=== PATIENT | female | born 1960 | race Two or more races ===

== ENCOUNTER 2023-02-16 10:00 | Inpatient (IN) | payer OTHER ==
[2023-02-16] MEDS ORDERED: PROTONIX20 MG PO (12:12)
[2023-02-21] MEDS ORDERED: PANTOPRAZOLE SO40 MG (11:32)
[2023-02-21] MEDS ORDERED: FLUOCINOLONE AC20 ML (11:32)
[2023-02-22 07:54] LABS: HEMATOCRIT 31.6 % (36.0-45.00); HEMOGLOBIN 10.5 g/dL (12.0-15.00); MEAN CELL VOLUME 83.1 fL (80.00-100.00); MEAN CORPUSCULAR HEMOGLOBIN 27.5 pg (27.00-32.0); MEAN CORPUSCULAR HGB CONC 33.1 g/dl (32.0-36.0); PLATELET COUNT 254 K/uL (150-450); RED BLOOD COUNT 3.81 M/uL (4.00-6.00); RED CELL DISTRIBUTION WIDTH 12.6 % (11.5-14.5)
[2023-02-22 08:31] LABS: ALBUMIN 2.8 gm/dL (3.4-5.0); CALCIUM 8.3 mg/dL (8.5-10.1); CREATININE SERUM 0.54 mg/dL (0.55-1.02); GFR 114.39; MAGNESIUM 1.6 mg/dL (1.8-2.4); PHOSPHOROUS 3.5 mg/dL (2.5-4.9); POTASSIUM 3.65 mEq/L (3.5-5.1)
[2023-02-23 06:44] LABS: HEMATOCRIT 31.7 % (36.0-45.00); HEMOGLOBIN 10.7 g/dL (12.0-15.00); MEAN CORPUSCULAR HEMOGLOBIN 27.6 pg (27.00-32.0); MEAN CORPUSCULAR HGB CONC 33.6 g/dl (32.0-36.0); PLATELET COUNT 248 K/uL (150-450); RED BLOOD COUNT 3.87 M/uL (4.00-6.00); RED CELL DISTRIBUTION WIDTH 13.3 % (11.5-14.5)
[2023-02-23 07:12] LABS: CALCIUM 8.2 mg/dL (8.5-10.1); CREATININE SERUM 0.54 mg/dL (0.55-1.02); GFR 114.39; MAGNESIUM 2.3 mg/dL (1.8-2.4); PHOSPHOROUS 2.7 mg/dL (2.5-4.9); POTASSIUM 3.58 mEq/L (3.5-5.1)
== END 2023-02-23 15:04 | disposition home or self-care (01) | DRG 330 ==
LOC: SURH 10:00 → O/R 02-21 05:30 → SURH 02-21 18:32
PROVIDERS: Internal Medicine Geriatric Medicine; ADMIT Colon & Rectal Surgery; ATTEND Colon & Rectal Surgery
PROC: 0DBP4ZZ Excision of Rectum, Percutaneous Endoscopic Approach (ICD-10-PCS; 2023-02-21)
PROC: 3E0F7GC Introduction of Other Therapeutic Substance into Respiratory Tract, Via Natural or Artificial Opening (ICD-10-PCS; 2023-02-21)
PROC: 0DTN4ZZ Resection of Sigmoid Colon, Percutaneous Endoscopic Approach (ICD-10-PCS; principal; 2023-02-21 07:00)
DX: K59.09 Other constipation (principal); K57.32 Diverticulitis of large intestine without perforation or abscess without bleeding

== ENCOUNTER 2024-11-16 12:14 | Inpatient (IN) | payer OTHER ==
[~2024-11-16] VITALS: Ht 154.9 cm; Wt 585.1 kg
[~2024-11-16 12:14] MED LIST: FLUOCINOLONE AC20 ML; PANTOPRAZOLE SO40 MG; PROTONIX20 MG PO
--- NOTE | 2024-11-16 12:31 | NUR ---
SE RECIBE PTE ALERTA Y ORIENTADA LA CUAL REFIERE VENIR POR DOLOR ABDOMINAL DIFUSO DESDE HACE VARIOS MATHUR, NAUSEAS, CONSTIPACION Y FIEBRE. PTE DE DR. STAFFORD. SE MIDEN S/V A PTE Y SE UBICA.
[2024-11-16] MEDS ORDERED: MORPHINE SULFATE 2 MG/ML CARTRIDGE IV ONE (14:45)
[2024-11-16 15:52] LABS: BASO % 0.2 % (0.1-1.2); EOS # 0.00 (0.04-0.54); EOS % 0.0 % (0.7-7.0); LYMPH # 0.85 (1.18-3.74); LYMPH % 5.0 % (19.3-53.1); MEAN PLATELET VOLUME 9.50 fl (9.4-12.4); MONO # 1.22 (0.24-0.82); MONO % 7.1 % (4.7-12.5); NEUT # 14.98 (1.56-6.13); NEUT % 87.4 % (34.0-71.1); RED CELL DISTRIBUTION WIDTH 13.8 % (11.6-14.4)
--- NOTE | 2024-11-16 15:55 | NUR ---
PTE. EVALUADO POR DR. JEAN, PRESENTANDO DOLOR ABDOMINAL. SE COLECTAN MUESTRAS DE PRASANNA BAJO MEDIDAS ASEPTICAS Y SE ADMINISTRA MEDICACION ADIEL ORDEN MEDICA. CLIENTE ES ORIENTADO SOBRE PROCEDIMIENTOS REALIZADOS Y PROCESO DE RE-EVALUACION MEDICA. PENDIENTE CT ABD-PELVICO. PTE. ALERTA Y ORIENTADO LORA LA INTERVENCION POR PERSONAL RN.
[2024-11-16 16:17] LABS: INR 1.17
[2024-11-16 16:25] LABS: ALT/SGPT 20.0 U/L (12-78); AST/SGOT 37.0 U/L (15-37); BILIRUBIN TOTAL 2.05 mg/dL (0.3-1.2); BILIRUBIN,CONJUGATED 0.41 mg/dL (0.0-0.2); BUN CREA RATIO 19.0 (7.0-25.0); CREATININE SERUM 0.59 mg/dL (0.55-1.02); GFR 102.62; GLOBULINA 3.9 G/DL (2.4-3.5); GLUCOSE FASTING 108.0 mg/dL (65-100); OSMOLALITY SERUM 277.0 MOSM/KG (275-295)
[2024-11-16] MEDS ORDERED: LIDOCAINE HCL VISCOUS 20MG/ML BLIST 15ML MM ONE (17:42)
--- NOTE | 2024-11-16 18:24 | NUR ---
SE INSERTA TUBO NASOGASTRICO #16 EN FOSA NASAL IZQUIERDA Y SE CONECTA A SUCCION INTERMITENTE. CLIENTE ES ORIENTADO SOBRE PROCEDIMIENTO REALIZADO Y SEGUIMIENTO DE CONDICION EN MICKEY DE EMERGENCIAS. SE MANTIENE EN OBSERVACION POR CAMBIOS SIGNIFICATIVOS DENTRO DE DELEON CONDICION.
[2024-11-16] MEDS ORDERED: MORPHINE SULFATE 4 MG/ML VIAL IV STA (20:11)
[2024-11-16] MEDS ORDERED: PIPERACILLIN/TAZOBACTAM SODIUM 3.375 GM VIAL IV STA (20:20)
[2024-11-16] MEDS ORDERED: PIPERACILLIN/TAZOBACTAM SODIUM 3.375 GM VIAL IV ONE (20:31)
[2024-11-16] MEDS ORDERED: PANTOPRAZOLE SODIUM 40 MG in 0.9 % SODIUM CHLORIDE 8 ML IV PUSH SCH (20:45)
[2024-11-16] MEDS ORDERED: MORPHINE SULFATE 2 MG/ML CARTRIDGE IV PRN (20:45)
[2024-11-16] MEDS ORDERED: ONDANSETRON HCL 4 MG in 0.9 % SODIUM CHLORIDE 50 ML IV PRN (20:45)
[2024-11-16] MEDS ORDERED: PIPERACILLIN/TAZOBACTAM SODIUM 4.5 GM in 0.9 % SODIUM CHLORIDE 100 ML IV SCH (20:45)
[2024-11-16] MEDS ORDERED: POTASSIUM CHLORIDE 20MEQ/100ML H2O PB IV ONE ×2 (20:45→21:28)
[2024-11-16] MEDS ORDERED: 0.9 % SODIUM CHLORIDE 1,000 ML IV SCH (20:45)
[2024-11-16 21:56] VITALS: BP 96/62; O2SAT 100
[2024-11-16 23:36] VITALS: BP 109/68; O2SAT 96
[2024-11-17 05:51] LABS: ALT/SGPT 16.0 U/L (12-78); AST/SGOT 32.0 U/L (15-37); BILIRUBIN TOTAL 1.7 mg/dL (0.3-1.2); BUN CREA RATIO 22.0 (7.0-25.0); CREATININE SERUM 0.5 mg/dL (0.55-1.02); GFR 124.21; GLOBULINA 3.1 G/DL (2.4-3.5); GLUCOSE FASTING 111.0 mg/dL (65-100); OSMOLALITY SERUM 278.0 MOSM/KG (275-295)
[2024-11-17 08:00] VITALS: BP 108/66
[2024-11-17] MEDS ORDERED: ENOXAPARIN SODIUM 40 MG/0.4 ML SYRINGE SUBCUTANEO SCH (09:45)
[2024-11-17 15:54] VITALS: BP 113/72; O2SAT 100
[2024-11-18 00:56] VITALS: BP 103/64; O2SAT 96
[2024-11-18 07:48] VITALS: BP 101/62; O2SAT 95
[2024-11-18 08:51] LABS: BASO % 0.2 % (0.1-1.2); EOS # 0.00 (0.04-0.54); EOS % 0.0 % (0.7-7.0); LYMPH # 0.77 (1.18-3.74); LYMPH % 5.4 % (19.3-53.1); MEAN PLATELET VOLUME 10.30 fl (9.4-12.4); MONO # 1.57 (0.24-0.82); MONO % 11.1 % (4.7-12.5); NEUT # 11.73 (1.56-6.13); NEUT % 82.7 % (34.0-71.1); RED CELL DISTRIBUTION WIDTH 14.2 % (11.6-14.4)
[2024-11-18 16:36] VITALS: BP 105/67; O2SAT 96
[2024-11-19 00:17] VITALS: BP 106/62; O2SAT 97
[2024-11-19 06:00] LABS: BASO % 0.3 % (0.1-1.2); EOS # 0.00 (0.04-0.54); EOS % 0.0 % (0.7-7.0); LYMPH # 0.74 (1.18-3.74); LYMPH % 6.5 % (19.3-53.1); MEAN PLATELET VOLUME 10.10 fl (9.4-12.4); MONO # 1.29 (0.24-0.82); MONO % 11.4 % (4.7-12.5); NEUT # 9.23 (1.56-6.13); NEUT % 81.4 % (34.0-71.1); RED CELL DISTRIBUTION WIDTH 13.9 % (11.6-14.4)
[2024-11-19 06:35] LABS: URINE APPEARANCE Clear; URINE BILIRRUBIN Negative (NEGATIVE); URINE BLOOD Negative; URINE COLOR Dark Yellow; URINE GLUCOSE Negative (NEGATIVE); URINE LEUKOCYTE Negative; URINE NITRATE Negative; URINE PROTEIN 30 (NEGATIVE); URINE UROBILINOGEN 1.0 E.U./dl
[2024-11-19 06:39] LABS: URINE BACTERIA 8.3 uL (0.0-1933); URINE EPITHELIAL CELLS 30.5 uL (0.0-38.8); URINE RBC 35.0 uL (0.0-20.8); URINE WBC 5.3 uL (0.0-23.2)
[2024-11-19 07:20] LABS: ALT/SGPT 15.0 U/L (12-78); AST/SGOT 27.0 U/L (15-37); BILIRUBIN TOTAL 0.93 mg/dL (0.3-1.2); BUN CREA RATIO 26.0 (7.0-25.0); CREATININE SERUM 0.47 mg/dL (0.55-1.02); GFR 133.41; GLOBULINA 3.1 G/DL (2.4-3.5); GLUCOSE FASTING 95.0 mg/dL (65-100); OSMOLALITY SERUM 292.0 MOSM/KG (275-295)
[2024-11-19 07:26] LABS: URINE CAST 0.29 uL (0.0-1.40); URINE KETONE >=160 (NEGATIVE)
[2024-11-19 08:08] VITALS: BP 99/62; O2SAT 95
[2024-11-19] MEDS ORDERED: POTASSIUM CHLORIDE IN WATER 40 MEQ/100 ML PIGGYBAG IV NR (09:00)
[2024-11-19] MEDS ORDERED: MIDAZOLAM HCL 2 MG/2 ML VIAL IV ONE (11:15)
[2024-11-19] MEDS ORDERED: DIPHENHYDRAMINE HCL 50 MG/ML VIAL 1ML IV ONE (11:15)
[2024-11-19] MEDS ORDERED: fentaNYL CITRATE 50 MCG/ML AMPUL IV PUSH ONE (11:15)
[2024-11-19] MEDS ORDERED: POLYETHYLENE GLYCOL 3350 17 GM BLIST.PACK PO SCH (13:00)
[2024-11-19] MEDS ORDERED: POTASSIUM CHLORIDE IN WATER 40 MEQ/100 ML PIGGYBAG IV ONE (13:24)
[2024-11-19 17:00] VITALS: BP 100/64; O2SAT 97
[2024-11-19] MEDS ORDERED: AMINO ACIDS/PROTEIN HYDROLYS 30 ML BLIST.PACK PO SCH (17:00)
[2024-11-20 01:44] VITALS: BP 100/59; O2SAT 97
[2024-11-20 09:22] VITALS: BP 107/67; O2SAT 96
[2024-11-20 16:00] VITALS: BP 101/63; O2SAT 96
[2024-11-21 01:41] VITALS: BP 122/69; O2SAT 100
[2024-11-21 08:00] VITALS: BP 103/68; O2SAT 97
[2024-11-21] MEDS ORDERED: MINERAL OIL 30 ML BLIST.PACK PO NR (10:00)
[2024-11-21] MEDS ORDERED: LACTULOSE 20 G/30 ML BLIST.PACK PO NR (10:00)
[2024-11-21] MEDS ORDERED: HYOSCYAMINE SULFATE 0.125 MG TAB.SUBL SL NR (10:00)
[2024-11-21] MEDS ORDERED: LACTULOSE 20 G/30 ML BLIST.PACK PO SCH (13:00)
[2024-11-21] MEDS ORDERED: HYOSCYAMINE SULFATE 0.125 MG TAB.SUBL SL SCH (13:00)
[2024-11-21 17:23] VITALS: BP 128/78; O2SAT 98
[2024-11-21] MEDS ORDERED: LORazepam 2 MG/ML VIAL IV NR (19:45)
[2024-11-21] MEDS ORDERED: MORPHINE SULFATE 4 MG/ML VIAL IV PRN (20:45)
[2024-11-21 22:57] LABS: ABG PH 7.162 (7.35-7.45); ABG PO2 73.8 mmHg (80-100)
[2024-11-21 22:58] LABS: BICARBONATE 13.9 mmol/l (23-25); o2 21 %
[2024-11-22] MEDS ORDERED: SODIUM CL 0.9% 100 ML IV.SOLN IV ONE (06:26)
[2024-11-22] MEDS ORDERED: MINERAL OIL 30 ML BLIST.PACK PO SCH (09:00)
== END 2024-11-22 12:00 | disposition expired | DRG 389 ==
LOC: ER 12:14 → SURH 21:24
PROVIDERS: Emergency Medicine; General Practice; Internal Medicine; Internal Medicine Infectious Disease; Student in an Organized Health Care Education/Training Program; ADMIT Internal Medicine; ATTEND Internal Medicine
PROC: BW21YZZ Computerized Tomography (CT Scan) of Abdomen and Pelvis using Other Contrast (ICD-10-PCS; principal; 2024-11-16)
PROC: 0DJD8ZZ Inspection of Lower Intestinal Tract, Via Natural or Artificial Opening Endoscopic (ICD-10-PCS; 2024-11-19)
PROC: 0DH68UZ Insertion of Feeding Device into Stomach, Via Natural or Artificial Opening Endoscopic (ICD-10-PCS; 2024-11-21)
PROC: 0BH18EZ Insertion of Endotracheal Airway into Trachea, Via Natural or Artificial Opening Endoscopic (ICD-10-PCS; 2024-11-22)
DX: K56.699 Other intestinal obstruction unspecified as to partial versus complete obstruction (principal); E87.20 Acidosis, unspecified; K52.9 Noninfective gastroenteritis and colitis, unspecified; R09.02 Hypoxemia; E86.1 Hypovolemia; R09.2 Respiratory arrest; K59.09 Other constipation; K76.0 Fatty (change of) liver, not elsewhere classified